=== PATIENT | male | born 1970 | race African-American/Black ===

== ENCOUNTER 2017-05-19 09:31 | Emergency (ER) | payer OTHER ==
[~2017-05-19] VITALS: Ht 185.4 cm; Wt 95.2 kg
[2017-05-19 11:07] LABS: BASOPHIL% 1.1 % (0-2.5); EOSINOPHIL% 0.1 % (0.0-7.0); HEMATOCRIT 44.5 % (38.0-50.0); HEMOGLOBIN 14.8 gm/dL (13.0-16.0); LYMPHOCYTE% 23.7 % (17.0-45.0); MEAN CELL VOLUME 81.9 FL (83-96); MEAN CORPUSCULAR HEMOGLOBIN 27.3 PG (28-34); MEAN CORPUSCULAR HGB CONC 33.4 g/dL (30-36); MEAN PLATELET VOLUME 10.1 FL (6.5-11.5); MONOCYTE# 0.6 X10e3 (0-1.0); MONOCYTE% 13.5 % (3.0-12.0); NEUTROPHIL# 2.7 X10e3 (1.5-7.1); NEUTROPHIL% 61.6 % (40-75); PLATELET COUNT 170 X10e3 (140-420); RED BLOOD COUNT 5.43 X10e (3.90-5.60); RED CELL DISTRIBUTION WIDTH 14.1 % (11.0-15.5); WHITE BLOOD COUNT 4.4 X10e3 (4.0-10.5)
[2017-05-19 11:09] LABS: DIFF IND NO
[2017-05-19 11:37] LABS: ALBUMIN SERUM 3.9 g/dL (3.5-5.0); ALKALINE PHOSPHATASE 68 U/L (32-92); ALT (SGPT) 26 U/L (10-40); AST (SGOT) 33 U/L (10-42); BILIRUBIN, DIRECT 0.1 mg/dL (0.0-0.2); BLOOD UREA NITROGEN 12 mg/dL (9-23); CALCIUM SERUM 8.6 mg/dL (8.4-10.2); CARBON DIOXIDE 26 mmol/L (22-31); CHLORIDE 101 mmol/L (100-111); CREATININE SERUM 1.1 mg/dL (0.6-1.4); GLOM FILT RATE Estimated 92.8 mL/min (>60); GLUCOSE FASTING 177 mg/dL (70-110); LIPASE 56 U/L (22-51); POTASSIUM 3.8 mmol/L (3.5-5.1); PROTEIN TOTAL SERUM 7.8 g/dL (6.0-8.3); SODIUM 134 mmol/L (135-145)
[2017-05-19 11:38] LABS: BILIRUBIN,TOTAL <0.1 mg/dL (0.2-2.0)
== END 2017-05-19 13:00 | disposition home or self-care (01) ==
LOC: CED 09:31
PROVIDERS: Emergency Medicine
DX: R11.2 Nausea with vomiting, unspecified (principal); R19.7 Diarrhea, unspecified; F17.200 Nicotine dependence, unspecified, uncomplicated
CPT/HCPCS: 36415; 80048; 80076; 83690; 85025; 96361; 96374; 99284; J2405